=== PATIENT | male | born 1945 | race Caucasian/White ===

== ENCOUNTER 2018-03-04 13:41 | Emergency (ER) | payer MEDICARE ==
[~2018-03-04] VITALS: Ht 180.3 cm; Wt 76.8 kg
[2018-03-04 13:52] VITALS: BP 96/67; PULSE 111; RESP 16; TEMP 98.4; O2SAT 97
--- NOTE | 2018-03-04 14:23 | PD ---
HPI Chief Complaint: GI Complaint Time Seen by Provider: 14:06 Travel History International Travel<30 days: No Contact w/Intl Traveler<30days: No Traveled to known affect area: No History of Present Illness HPI 73yo M with PMH of bladder CA s/p resection on chemotherapy, last dose 1 week ago presents to the ED with c/o nausea and vomiting for 2 days. Pt was running to vomit and slip and fell on left shoulder. Pt said he did hit his head and unsure about LOC. Said he does not have a headache. Pain is localized in left shoulder. Denies any changes in vision, fever, abdominal pain, focal weakness or numbness. PFSH Past Medical History Cardiovascular Problems: Yes (hx of htn borerline ) Social History Tobacco Use: No Allergies-Medications (Allergen,Severity, Reaction): Coded Allergies: No Known Allergies (Unverified , 03/04/18) Reported Meds & Prescriptions Reported Meds & Active Scripts Active Tylenol (Acetaminophen) 325 Mg Tab 650 Mg PO Q6H PRN Reported Proctor (Hydrocodone-Acetaminophen) 5 Mg-325 Mg Tab 1 Tab PO Q4H PRN Prochlorperazine Maleate 10 Mg Tab 10 Mg PO Q4H PRN Dexamethasone 4 Mg Tab 4 Mg PO DIRECTED Lorazepam 0.5 Mg Tab 0.5 Mg PO BID PRN Nexium (Esomeprazole DR) 20 Mg Capdr 20 Mg PO DAILY Magnesium Oxide 250 Mg Tab 250 Mg PO BID Citalopram (Citalopram Hydrobromide) 20 Mg Tab 20 Mg PO DAILY Review of Systems Except as stated in HPI: all other systems reviewed are Neg Physical Exam Narrative GENERAL: 73yo M in mild distress. SKIN: Focused skin assessment warm/dry. HEAD: Atraumatic. Normocephalic. EYES: Pupils equal and round. No scleral icterus. No injection or drainage. ENT: No nasal bleeding or discharge. Mucous membranes pink and moist. NECK: No midline ttp cervical spine. CARDIOVASCULAR: Regular rate and rhythm. No murmur appreciated. RESPIRATORY: No accessory muscle use. Clear to auscultation. Breath sounds equal bilaterally. GASTROINTESTINAL: Abdomen soft, non-tender, nondistended. No rebound tenderness or guarding. MUSCULOSKELETAL: LUE: +TTP proximal humerus. Sensation intact. Unable to move left shoulder. Radial pulse 2+. No ttp left elbow. NEUROLOGICAL: Awake and alert. No obvious cranial nerve deficits. Motor grossly within normal limits. Normal speech. PSYCHIATRIC: Appropriate mood and affect; insight and judgment normal. Data Data Last Documented VS Vital Signs Date Time Temp Pulse Resp B/P (MAP) Pulse Ox O2 Delivery O2 Flow Rate FiO2 03/04/18 17:12 75 18 122/77 (92) 96 03/04/18 15:15 Room Air 03/04/18 13:[address] Brain W/O Iv Contrast(Rout) (03/04/18 ) Shoulder, Limited(2vws) (03/04/18 ) Complete Blood Count With Diff (03/04/18 14:19) Comprehensive Metabolic Panel (03/04/18 14:19) Magnesium (Mg) (03/04/18 14:19) Lipase (03/04/18 14:19) Ondansetron Odt (Zofran Odt) (03/04/18 14:30) Sodium Chlor 0.9% 1000 Ml Inj (Ns 1000 M (03/04/18 14:30) Ketorolac Inj (Toradol Inj) (03/04/18 15:30) Morphine Inj (Morphine Inj) (03/04/18 16:00) Heparin Central Flush (Heparin Central F (03/04/18 17:00) Labs Laboratory Tests Test 03/04/18 14:00 03/04/18 14:50 White Blood Count 7.2 TH/MM3 Red Blood Count 3.62 MIL/MM3 Hemoglobin 11.4 GM/DL Hematocrit 34.0 % Mean Corpuscular Volume 93.9 FL Mean Corpuscular Hemoglobin 31.4 PG Mean Corpuscular Hemoglobin Concent 33.4 % Red Cell Distribution Width 13.0 % Platelet Count 87 TH/MM3 Mean Platelet Volume 7.4 FL CBC Comment AUTO DIFF Differential Total Cells Counted 100 Neutrophils % (Manual) 88 % Band Neutrophils % 2 % Lymphocytes % 8 % Monocytes % 1 % Basophils % 1 % Neutrophils # (Manual) 6.5 TH/MM3 Differential Comment FINAL DIFF MANUAL Platelet Estimate LOW Platelet Morphology Comment NORMAL Rouleau PRESENT Red Cell Morphology Comment NORMAL Blood Urea Nitrogen 21 MG/DL Creatinine 0.82 MG/DL Random Glucose 114 MG/DL Total Protein 6.8 GM/DL Albumin 3.4 GM/DL Calcium Level 8.7 MG/DL Magnesium Level 1.6 MG/DL Alkaline Phosphatase 109 U/L Aspartate Amino Transf (AST/SGOT) 24 U/L Alanine Aminotransferase (ALT/SGPT) 77 U/L Total Bilirubin 1.4 MG/DL Sodium Level 136 MEQ/L Potassium Level 3.5 MEQ/L Chloride Level 99 MEQ/L Carbon Dioxide Level 28.7 MEQ/L Anion Gap 8 MEQ/L Estimat Glomerular Filtration Rate 93 ML/MIN Lipase 118 U/L [facility] Medical Decision Making Medical Screen Exam Complete: Yes Emergency Medical Condition: Yes Differential Diagnosis Dehydration vs. chemo induced nausea vs. electrolyte abnormality vs. ICH vs. Fracture vs. contusion Narrative Course 73yo M with left shoulder pain s/p mechanical fall. Pt also with nausea and vomiting. No abdominal pain or fever. Labs reviewed, no leukocytosis. H/H 11.4/34.0. No prior to compare to. Thrombocytopenia at 87,000. BUN mildly elevated at 21. Creatinine normal. Lipase normal. Bilirubin mildly elevated at 1.4, likely secondary to dehydration. CT brain negative. Xray left shoulder showed degenerative changes without fractures. Pt given zofran and NS IVF. Pt is feeling better and not nauseous anymore. Tolerating PO. Discussed with oncologist Dr. Edwards who is covering Dr. Duarte and said he had thrombocytopenia before and this is lower but pt can follow up with Dr. Duarte as outpatient. Pt has appointment with Dr. Duarte tomorrow. Instructed pt to follow up as outpatient if left shoulder pain persists. Return precautions given. Diagnosis Primary Impression: Dehydration Additional Impression: Left shoulder pain Qualified Codes: M25.512 - Pain in left shoulder Referrals: Elie Alcocer MD as needed Patient Instructions: General Instructions Departure Forms: Tests/Procedures Additional Instructions: Please follow up with Dr. Duarte tomorrow. Please follow up with orthopedic surgery if left shoulder pain persists. Return to the ED if symptoms worsen. Med/Other Pt SpecificInfo: Prescription(s) given Scripts Acetaminophen (Tylenol) 325 Mg Tab 650 MG PO Q6H Y for PAIN SCALE 1 TO 4, #20 TAB 0 Refills Prov: Jennifer Daily 03/04/18 Disposition: 01 DISCHARGE HOME Condition: Stable Jennifer Daily Mar 04, 2018 14:23
[2018-03-04] MEDS ORDERED: ONDANSETRON ODT 4 MG TAB PO ONE (14:30)
[2018-03-04] MEDS ORDERED: SODIUM CHLOR 0.9% 1000 ML INJ 1,000 ML IV ONE (14:30)
--- NOTE | 2018-03-04 14:47 | RADRPT ---
EXAM DATE: 03/04/2018 2:43 PM EDT AGE/SEX: 73 years / Male INDICATIONS: Fell, left shoulder pain, Chemo patient for bladder CA CLINICAL DATA: This is the patient's initial encounter. Patient reports that signs and symptoms have been present for 3 days and indicates a pain score of 9/10. MEDICAL/SURGICAL HISTORY: Carcinoma, bladder. . port placement COMPARISON: No prior exams available for comparison. FINDINGS: Bony structures are intact and in normal alignment. Joints are intact without dislocation or signifi cant arthropathy. Osseous density is normal. Soft tissues are unremarkable. No radiopaque foreign bodies seen. CONCLUSION: Degenerative changes without fracture Electronically signed by: Nick Amaro MD 03/04/2018 2:46 PM EDT
[2018-03-04 15:00] LABS: HEMOGLOBIN 11.4 GM/DL (13.0-17.0); MEAN CELL VOLUME 93.9 FL (80.0-100.0); MEAN CORPUSCULAR HEMOGLOBIN 31.4 PG (27.0-34.0); MEAN CORPUSCULAR HGB CONC 33.4 % (32.0-36.0); MEAN PLATELET VOLUME 7.4 FL (7.0-11.0); RED BLOOD COUNT 3.62 MIL/MM3 (4.50-5.90); WHITE BLOOD COUNT 7.2 TH/MM3 (4.0-11.0)
[2018-03-04] MEDS ORDERED: MAGN250T11 PO (15:11)
[2018-03-04] MEDS ORDERED: LORA0.5T PO (15:11)
[2018-03-04] MEDS ORDERED: NEXI20CA PO (15:11)
[2018-03-04] MEDS ORDERED: DEXA4TAB PO (15:11)
[2018-03-04] MEDS ORDERED: PROC10TA PO (15:11)
[2018-03-04] MEDS ORDERED: NORC5TAB PO (15:11)
[2018-03-04] MEDS ORDERED: CITA20TA4 PO (15:11)
[2018-03-04 15:12] LABS: PLATELET COUNT 87 TH/MM3 (150-450)
[2018-03-04 15:15] VITALS: BP 103/68; PULSE 71; RESP 16; O2SAT 95
--- NOTE | 2018-03-04 15:15 | RADRPT ---
EXAM DATE: 03/04/2018 3:03 PM EDT AGE/SEX: 73 years / Male INDICATIONS: Tripped and fell. Complains of nausea, vomiting and diarrhea. CLINICAL DATA: This is the patient's initial encounter. Patient reports that signs and symptoms have been present for 3 days and indicates a pain score of 6/10. MEDICAL/SURGICAL HISTORY: Hypertension. Carcinoma, bladder. None. RADIATION DOSE: 55.50 CTDI (mGy) COMPARISON: No prior exams available for comparison. TECHNIQUE: CT of the head without contrast. Using automated exposure control and adjustment of the mA and/or kV according to patient size, radiation dose was kept as low as reasonably achievable to ob tain optimal diagnostic quality images. DICOM format image data is available electronically for revi ew and comparison. FINDINGS: Cerebrum: The ventricles are normal for age. No evidence of midline shift, mass lesion, hemorrhage or acute infarction. No extraaxial fluid collections are seen. Posterior Fossa: The cerebellum and brainstem are intact. The 4th ventricle is midline. The cerebe llopontine angle is unremarkable. Extracranial: The visualized portion of the orbits is intact. Skull: The calvaria is intact. No evidence of skull fracture. CONCLUSION: 1. No acute intracranial abnormalities. Fluid in left maxillary sinus. Electronically signed by: Abdulkadir Mondragon MD 03/04/2018 3:14 PM EDT
[2018-03-04 15:19] LABS: CHLORIDE 99 MEQ/L (98-107); SODIUM (NA) 136 MEQ/L (136-145)
[2018-03-04 15:22] LABS: CALCIUM 8.7 MG/DL (8.5-10.1)
[2018-03-04 15:23] LABS: ALBUMIN 3.4 GM/DL (3.4-5.0); BICARBONATE 28.7 MEQ/L (21.0-32.0); BLOOD UREA NITROGEN 21 MG/DL (7-18); GLUCOSE,RANDOM 114 MG/DL (74-106); MAGNESIUM 1.6 MG/DL (1.5-2.5)
[2018-03-04 15:26] LABS: ALT (GPT) 77 U/L (12-78); AST (GOT) 24 U/L (15-37); CREATININE 0.82 MG/DL (0.60-1.30); GLOMERULAR FILTRATION RATE 93 ML/MIN (>89)
[2018-03-04 15:27] LABS: TOTAL PROTEIN 6.8 GM/DL (6.4-8.2)
[2018-03-04 15:28] LABS: TOTAL BILIRUBIN ADULT 1.4 MG/DL (0.2-1.0)
[2018-03-04 15:29] LABS: ALKALINE PHOSPHATASE 109 U/L (45-117)
[2018-03-04] MEDS ORDERED: KETOROLAC TROMETHAMINE 30 MG/ML (IVP) VIAL IV PUSH ONE (15:30)
[2018-03-04 15:37] LABS: BANDS 2 % (0-6); BASOPHILS 1 % (0-2); LYMPHOCYTES 8 % (9-44); MONOCYTES 1 % (0-8); NEUTROPHIL # MANUAL DIFF 6.5 TH/MM3 (1.8-7.7); POLYS (SEG NEUTROPHILS) 88 % (16-70); ROULEAUX PRESENT (NORMAL)
[2018-03-04] MEDS ORDERED: MORPHINE SULFATE 4 MG/ML INJ IV PUSH ONE (16:00)
[2018-03-04 16:31] VITALS: RESP 18
[2018-03-04] MEDS ORDERED: ZOFR4TAB3 SL (16:58)
[2018-03-04] MEDS ORDERED: TYLE325T PO (16:58)
[2018-03-04 17:12] VITALS: BP 122/77
== END 2018-03-04 17:20 | disposition home or self-care (01) ==
LOC: PHED 13:41
DX: E86.0 Dehydration (principal); M25.512 Pain in left shoulder; C67.9 Malignant neoplasm of bladder, unspecified; D69.6 Thrombocytopenia, unspecified; W01.0XXA Fall on same level from slipping, tripping and stumbling without subsequent striking against object, initial encounter
CPT/HCPCS: 70450; 73030; 80053; 83690; 83735; 85007; 85027; 96361; 96374; 96375; 99284; J1642; J1885; J2270; J7030